=== PATIENT | female | born 1965 | race Native Hawaiian/Other Pacific Islander ===

== ENCOUNTER 2017-07-14 08:54 | Emergency (ER) | payer OTHER ==
[~2017-07-14] VITALS: Ht 160 cm; Wt 72.6 kg
[2017-07-14 09:00] VITALS: TEMP 98
[2017-07-14] MEDS ORDERED: FURO40TA93 PO (09:39)
[2017-07-14] MEDS ORDERED: GLIP10TA55 PO (09:40)
[2017-07-14] MEDS ORDERED: SERT50TA PO (09:40)
[2017-07-14] MEDS ORDERED: POT CHLORIDE10 MEQ OR (09:41)
[2017-07-14] MEDS ORDERED: VERA180T12 PO (09:42)
[2017-07-14] MEDS ORDERED: SPIR100T7 PO (09:42)
[2017-07-14 10:01] LABS: PLATELET COUNT 91 K/uL (152-353)
[2017-07-14 10:20] LABS: POTASSIUM 3.2 mmol/L (3.6-5.2); SODIUM 135 mmol/L (136-145)
[2017-07-14 11:00] VITALS: BP 147/90
[2017-07-14] MEDS ORDERED: ABILIFY MAINTE400 M1 IM (14:37)
[2017-08-09] MEDS ORDERED: GLIP10TA55 PO (19:06)
[2017-08-09] MEDS ORDERED: METAMUCIL0.52 GM PO (19:06)
[2017-08-09] MEDS ORDERED: MEGE40TA32 PO (19:06)
[2017-08-09] MEDS ORDERED: COLCHICINE0.6 MG PO (19:06)
[2017-08-09] MEDS ORDERED: SPIR100T7 PO (19:06)
[2017-08-09] MEDS ORDERED: HYDR25CA25 PO (19:06)
[2017-08-09] MEDS ORDERED: RISP0.5T2 PO (19:06)
[2017-08-09] MEDS ORDERED: NAC 600 PO (19:06)
[2017-08-09] MEDS ORDERED: ARIPIPRAZOLE10 MG PO (19:06)
[2017-08-09] MEDS ORDERED: POT CHLORIDE10 MEQ OR (19:06)
[2017-08-09] MEDS ORDERED: PANTOPRAZOLE 40MG TA PO (19:06)
[2017-08-09] MEDS ORDERED: FURO40TA93 PO (19:06)
[2017-08-09] MEDS ORDERED: SOD CHLORIDE1 GM PO (19:06)
[2017-08-09] MEDS ORDERED: VERA180T12 PO (19:06)
[2017-08-09] MEDS ORDERED: RISP50IN IM (19:07)
== END 2017-07-14 13:22 | disposition other institution (70) ==
LOC: ED 08:54
PROVIDERS: Family Medicine
DX: F31.89 Other bipolar disorder (principal); F20.89 Other schizophrenia; I45.81 Long QT syndrome; E87.6 Hypokalemia
CPT/HCPCS: 80053; 80307; 80320; 80329; 81000; 84484; 85027; 93005; 99285; J2060